=== PATIENT | male | born 1980 | race African-American/Black ===

== ENCOUNTER 2017-03-31 16:47 | Emergency (ER) | payer MEDICARE, MEDICAID ==
[~2017-03-31] VITALS: Ht 177.8 cm; Wt 109.0 kg
[~2017-03-31 16:47] MED LIST: KEPPRA; LAMICTAL
[2017-03-31 17:48] LABS: BASOPHILS % 0.6 % (0.0-2.0); HEMATOCRIT. 42.4 % (42.0-52.0); HEMOGLOBIN. 13.8 g/dL (14.0-18.0); LYMPHOCYTES % 29.1 % (20.0-50.0); MEAN CORPUSCULAR HEMOGLOBIN 28.1 pg (28.0-32.0); MEAN CORPUSCULAR VOLUME 86.5 fL (80.0-94.0); MEAN PLATELET VOLUME 10.6 fl (7.4-10.4); MONOCYTES % 7.8 % (2.0-8.0); NEUTROPHILS % 60.5 % (40.0-76.0); PLATELET 162 x1000/uL (130-400); RED CELL DISTRIBUTION WIDTH 14.2 % (11.6-14.6)
[2017-03-31 17:54] LABS: CLARITY URINE CLEAR (CLEAR); COLOR URINE YELLOW (YELLOW); GLUCOSE URINE NEGATIVE (NEGATIVE); KETONES URINE TRACE (NEGATIVE); LEUKOCYTE ESTERASE URINE 2+ (NEGATIVE); NITRITE URINE NEGATIVE (NEGATIVE); OCCULT BLOOD URINE TRACE (NEGATIVE); PH URINE 5.5 (4.5-8.0); PROTEIN URINE 2+ (NEGATIVE); SPECIFIC GRAVITY URINE 1.024 (1.005-1.030); UROBILINOGEN URINE 0.2 E.U./dL (0.2-1.0)
[2017-03-31 17:57] LABS: CARBON DIOXIDE 25 mEq/L (21-32); CHLORIDE 106 mEq/L (98-107)
[2017-03-31 17:58] LABS: ETHANOL BLOOD < 10 mg/dL
[2017-03-31 18:03] LABS: PHENOBARBITAL < 2.1 ug/mL (15.0-40.0); VALPROIC ACID < 3.0 ug/mL (50-100)
[2017-03-31 18:07] LABS: *AMPHETAMINES SCREEN URINE NEGATIVE (NEGATIVE); *BARBITURATES SCREEN URINE NEGATIVE (NEGATIVE); *BENZODIAZEPINES SCREEN URINE NEGATIVE (NEGATIVE); *COCAINE SCREEN URINE NEGATIVE (NEGATIVE); CANNABINOID URINE SCREEN NEGATIVE (NEGATIVE); METHADONE URINE SCREEN NEGATIVE (NEGATIVE); OPIATES URINE SCREEN NEGATIVE (NEGATIVE); PHENCYCLIDINE URINE SCREEN NEGATIVE (NEGATIVE)
[2017-03-31 19:20] VITALS: BP 120/71
== END 2017-03-31 19:45 | disposition home or self-care (01) ==
LOC: ER 16:47
DX: G40.909 Epilepsy, unspecified, not intractable, without status epilepticus (principal); R41.82 Altered mental status, unspecified; R03.0 Elevated blood-pressure reading, without diagnosis of hypertension; Z88.8 Allergy status to other drugs, medicaments and biological substances; Z79.899 Other long term (current) drug therapy
CPT/HCPCS: 36415; 70450; 80053; 80165; 80184; 80185; 80305; 81001; 82962; 85025; 93005; 99285; G0482

== ENCOUNTER 2017-04-06 08:34 | Emergency (ER) | payer MEDICARE, MEDICAID ==
[~2017-04-06] VITALS: Ht 200.7 cm; Wt 127.0 kg
[2017-04-06] MEDS ORDERED: LEVETIRACETAM 500MG TABLET PO ONE (09:00)
[2017-04-06 09:27] LABS: BASOPHILS % 0.6 % (0.0-2.0); EOSINOPHILS % 2.1 % (0.0-5.0); HEMATOCRIT. 41.7 % (42.0-52.0); HEMOGLOBIN. 13.6 g/dL (14.0-18.0); LYMPHOCYTES % 25.7 % (20.0-50.0); MEAN CORPUSCULAR HEMOGLOBIN 28.3 pg (28.0-32.0); MEAN CORPUSCULAR VOLUME 86.6 fL (80.0-94.0); MEAN PLATELET VOLUME 10.7 fl (7.4-10.4); MONOCYTES % 7.6 % (2.0-8.0); PLATELET 182 x1000/uL (130-400); RED BLOOD CELL COUNT 4.81 mill/uL (4.7-6.1)
[2017-04-06 09:39] LABS: CARBON DIOXIDE 28 mEq/L (21-32); CHLORIDE 107 mEq/L (98-107)
[2017-04-06 11:00] VITALS: BP 130/70
== END 2017-04-06 11:27 | disposition home or self-care (01) ==
LOC: ER 08:56
DX: G40.909 Epilepsy, unspecified, not intractable, without status epilepticus (principal)
CPT/HCPCS: 36415; 80048; 85025; 99284

== ENCOUNTER 2017-12-10 16:08 | Emergency (ER) | payer MEDICARE, MEDICAID ==
[~2017-12-10] VITALS: Ht 182.9 cm; Wt 140.0 kg
[2017-12-10] MEDS ORDERED: SODIUM CHLORIDE 0.9% 1,000 ML IV ONE (18:02)
[2017-12-10] MEDS ORDERED: LEVETIRACETAM 500MG TABLET PO ONE (18:15)
[2017-12-10] MEDS ORDERED: LEVETIRACETAM 500MG PREMIX 100 ML IV ONE (18:15)
[2017-12-10 18:36] LABS: BASOPHILS % 0.4 % (0.0-2.0); EOSINOPHILS % 1.3 % (0.0-5.0); HEMATOCRIT. 41.7 % (42.0-52.0); HEMOGLOBIN. 14.1 g/dL (14.0-18.0); MEAN CORPUSCULAR HEMOGLOBIN 29.3 pg (28.0-32.0); MEAN CORPUSCULAR VOLUME 86.8 fL (80.0-94.0); MEAN PLATELET VOLUME 10.9 fl (7.4-10.4); MONOCYTES % 6.6 % (2.0-8.0); NEUTROPHILS % 73.7 % (40.0-76.0); PLATELET 170 x1000/uL (130-400); RED CELL DISTRIBUTION WIDTH 14.5 % (11.6-14.6)
[2017-12-10 18:39] LABS: CHLORIDE 107 mEq/L (98-107)
[2017-12-10 18:44] LABS: ETHANOL BLOOD < 10 mg/dL
[2017-12-10 18:45] LABS: PARTIAL THROMBOPLASTIN TIME 23.3 sec (23.4-31.0); PROTHROMBIN TIME 10.7 sec (9.4-11.6)
[2017-12-10 19:01] LABS: *AMPHETAMINES SCREEN URINE NEGATIVE (NEGATIVE); *BARBITURATES SCREEN URINE NEGATIVE (NEGATIVE); *BENZODIAZEPINES SCREEN URINE NEGATIVE (NEGATIVE)
[2017-12-10 19:02] LABS: *COCAINE SCREEN URINE NEGATIVE (NEGATIVE); CANNABINOID URINE SCREEN NEGATIVE (NEGATIVE); METHADONE URINE SCREEN NEGATIVE (NEGATIVE); OPIATES URINE SCREEN NEGATIVE (NEGATIVE); PHENCYCLIDINE URINE SCREEN NEGATIVE (NEGATIVE)
[2017-12-10 20:44] VITALS: BP 124/75
== END 2017-12-10 20:45 | disposition home or self-care (01) ==
LOC: ER 16:19
DX: R56.9 Unspecified convulsions (principal); Z88.8 Allergy status to other drugs, medicaments and biological substances
CPT/HCPCS: 36415; 80048; 80305; 85025; 85610; 85730; 96365; 99285; G0482; J1953; J7030

== ENCOUNTER 2019-07-02 17:42 | Emergency (ER) | payer MEDICARE, MEDICAID ==
[~2019-07-02] VITALS: Ht 193 cm; Wt 106.0 kg
[2019-07-02] MEDS ORDERED: LEVETIRACETAM 500MG PREMIX 100 ML IV ONE (18:45)
[2019-07-02 18:51] LABS: BASOPHILS % 0.6 % (0.0-2.0); EOSINOPHILS % 2.7 % (0.0-5.0); HEMATOCRIT. 44.1 % (42.0-52.0); HEMOGLOBIN. 14.4 g/dL (14.0-18.0); LYMPHOCYTES % 22.2 % (20.0-50.0); MEAN CORPUSCULAR HEMOGLOBIN 28.8 pg (28.0-32.0); MEAN CORPUSCULAR VOLUME 88.3 fL (80.0-94.0); MEAN PLATELET VOLUME 10.8 fl (7.4-10.4); MONOCYTES % 4.9 % (2.0-8.0); NEUTROPHILS % 69.6 % (40.0-76.0); PLATELET 163 x1000/uL (130-400); RED BLOOD CELL COUNT 4.99 mill/uL (4.7-6.1); RED CELL DISTRIBUTION WIDTH 14.1 % (11.6-14.6)
[2019-07-02 18:53] LABS: CHLORIDE 106 mEq/L (98-107)
[2019-07-02] MEDS ORDERED: IBUPROFEN 600MG TABLET PO ONE (19:30)
[2019-07-02 21:36] VITALS: BP 123/69
== END 2019-07-02 21:50 | disposition home or self-care (01) ==
LOC: ER 17:42
DX: G40.909 Epilepsy, unspecified, not intractable, without status epilepticus (principal); Z91.81 History of falling
CPT/HCPCS: 36415; 70450; 80053; 85025; 96365; 99284; J1953